=== PATIENT | female | born 1970 | race Caucasian/White ===

== ENCOUNTER 2018-05-21 05:08 | Inpatient (IN) | payer OTHER ==
[~2018-05-21] VITALS: Ht 160 cm; Wt 83.6 kg
[2018-05-21 05:10] VITALS: Ht 160 cm; Wt 83.6 kg
[2018-05-21] MEDS ORDERED: MELOXICAM7.5 M1 PO (10:09)
[2018-05-21] MEDS ORDERED: CLARITIN10 MG PO (10:09)
[2018-05-21] MEDS ORDERED: NEU300 PO (10:11)
[2018-05-21] MEDS ORDERED: CYMBALTA20 M1 (10:11)
[2018-05-21] MEDS ORDERED: PRILOSEC OTC20 M1 PO (10:12)
[2018-05-21] MEDS ORDERED: XARELTO10 M1 PO (10:12)
[2018-05-21] MEDS ORDERED: LOSARTAN POTASS50 M1 PO (10:13)
[2018-05-21] MEDS ORDERED: LIPI20 PO (10:13)
[2018-05-21] MEDS ORDERED: TRILEPTAL150 MG PO (10:13)
[2018-05-21 10:21] LABS: CALCIUM 8.7 mg/dL (8.5-10.1); CARBON DIOXIDE 29.1 mmol/L (21-32); CHLORIDE SERUM 103 mmol/L (98-107); CREATININE SERUM 0.8 mg/dL (0.6-1.0); GFR1 > 60 mL/min; GLUCOSE SERUM 161 mg/dL (74-106); POTASSIUM SERUM 3.6 mmol/L (3.5-5.1); SODIUM SERUM 138 mmol/L (136-145)
[2018-05-21 10:26] LABS: ALBUMIN 3.4 g/dL (3.4-5.0); ALKALINE PHOSPHATASE 99 U/L (46-116); ALT/SGPT 22 U/L (14-59); AST/SGOT 17 U/L (15-37); BILIRUBIN TOTAL 0.19 mg/dL (0.20-1.00); TOTAL PROTEIN, SERUM 7.8 g/dL (6.4-8.2)
[2018-05-21 12:35] VITALS: BP 152/92
[2018-05-21 12:44] LABS: PHOSPHOROUS 2.6 mg/dL (2.5-4.9)
[2018-05-21 12:48] LABS: CHOLESTEROL/HDL RATIO 2.5
[2018-05-21 12:52] LABS: FREE T4 0.79 ng/dL (0.76-1.46); FREE THYROXINE INDEX 1.7 ug/dL (1.4-4.5); T4(THYROXINE) 5.9 ug/dL (4.7-13.3)
[2018-05-21 12:57] LABS: T3 TOTAL 1.26 ng/mL
[2018-05-21 14:04] LABS: BASOPHIL % 0.6 % (0-2); PLATELET COUNT 428 x10^3mcL (130-400); RED CELL DISTRIBUTION WIDTH 14.7 % (11.5-14.5)
[2018-05-21 15:11] VITALS: BP 138/79
[2018-05-21 15:49] LABS: microscopic required? NO
[2018-05-21 15:55] LABS: urine erythrocyte NEGATIVE (NEGATIVE)
[2018-05-21 16:27] LABS: AMPHETAMINE QUAL UR NONE DETECTED (See below)
[2018-05-21 17:22] VITALS: BP 138/79
[2018-05-21 17:34] VITALS: BP 138/72
[2018-05-21 21:44] VITALS: BP 132/73
[2018-05-22 04:55] VITALS: BP 127/82
[2018-05-22 06:46] LABS: BASOPHIL % 0.3 % (0-2); PLATELET COUNT 382 x10^3mcL (130-400)
[2018-05-22 06:52] LABS: RED CELL DISTRIBUTION WIDTH 14.8 % (11.5-14.5)
[2018-05-22 07:13] LABS: CALCIUM 8.2 mg/dL (8.5-10.1); CHLORIDE SERUM 107 mmol/L (98-107); CREATININE SERUM 0.6 mg/dL (0.6-1.0); GFR1 > 60 mL/min; GLUCOSE SERUM 90 mg/dL (74-106); MAGNESIUM 2.2 mg/dL (1.8-2.4); PHOSPHOROUS 3.7 mg/dL (2.5-4.9); POTASSIUM SERUM 3.6 mmol/L (3.5-5.1); SODIUM SERUM 138 mmol/L (136-145)
[2018-05-22 09:03] VITALS: BP 131/78
[2018-05-22] MEDS ORDERED: BUDESONIDE0.5 MG/2 M IH (11:52)
[2018-05-22] MEDS ORDERED: IPRATROPIUM BROM3 M2 HHN (11:53)
[2018-05-22] MEDS ORDERED: LEVOFLOXACIN500 M1 PO (11:55)
[2018-05-22 12:16] VITALS: BP 132/82
[2018-05-22] MEDS ORDERED: VENTOLIN H0.09 MG/A1 INH (12:42)
[2018-05-22 13:10] VITALS: BP 132/82
== END 2018-05-22 13:40 | disposition home or self-care (01) | DRG 145 ==
LOC: ED 05:08 → MU 11:03 → DU 11:03
PROVIDERS: Emergency Medicine; Internal Medicine
DX: J20.8 Acute bronchitis due to other specified organisms (principal); E87.2 Acidosis; E78.5 Hyperlipidemia, unspecified; R73.03 Prediabetes; M79.7 Fibromyalgia; F31.9 Bipolar disorder, unspecified; I10 Essential (primary) hypertension; Z68.32 Body mass index [BMI] 32.0-32.9, adult; Z87.891 Personal history of nicotine dependence; Z79.01 Long term (current) use of anticoagulants; Z86.718 Personal history of other venous thrombosis and embolism; J45.909 Unspecified asthma, uncomplicated; Z90.49 Acquired absence of other specified parts of digestive tract; R73.9 Hyperglycemia, unspecified; Z82.49 Family history of ischemic heart disease and other diseases of the circulatory system; R07.89 Other chest pain; R19.7 Diarrhea, unspecified
CPT/HCPCS: 83880; 84439; 87804; 94150; J7030; J7512; J7613; J7620; J7626; J7644; Q0092; Q9967

== ENCOUNTER 2018-05-28 22:03 | Emergency (ER) | payer OTHER ==
[~2018-05-28] VITALS: Ht 160 cm; Wt 82.7 kg
[~2018-05-28 22:03] MED LIST: BUDESONIDE0.5 MG/2 M IH; CLARITIN10 MG PO; CYMBALTA20 M1; IPRATROPIUM BROM3 M2 HHN; LEVOFLOXACIN500 M1 PO; LIPI20 PO; LOSARTAN POTASS50 M1 PO; MELOXICAM7.5 M1 PO; NEU300 PO; PRILOSEC OTC20 M1 PO; TRILEPTAL150 MG PO; VENTOLIN H0.09 MG/A1 INH; XARELTO10 M1 PO
[2018-05-28 22:11] VITALS: Ht 160 cm; Wt 82.7 kg
[2018-05-28 22:56] LABS: BASOPHIL % 0.5 % (0-2); PLATELET COUNT 479 x10^3mcL (130-400); RED CELL DISTRIBUTION WIDTH 15.1 % (11.5-14.5)
[2018-05-28 23:02] LABS: CALCIUM 8.8 mg/dL (8.5-10.1); CARBON DIOXIDE 24.5 mmol/L (21-32); CHLORIDE SERUM 106 mmol/L (98-107); CREATININE SERUM 0.8 mg/dL (0.6-1.0); GFR1 > 60 mL/min; GLUCOSE SERUM 107 mg/dL (74-106); POTASSIUM SERUM 3.9 mmol/L (3.5-5.1); SODIUM SERUM 142 mmol/L (136-145)
[2018-05-28 23:15] LABS: ALBUMIN 3.6 g/dL (3.4-5.0); ALKALINE PHOSPHATASE 124 U/L (46-116); ALT/SGPT 76 U/L (14-59); AST/SGOT 22 U/L (15-37); BILIRUBIN TOTAL 0.1 mg/dL (0.20-1.00); FREE T4 0.79 ng/dL (0.76-1.46)
[2018-05-29 01:14] LABS: microscopic required? NO
[2018-05-29 01:29] LABS: UA SPECIFIC GRAVITY >=1.030 (1.005-1.035); urine erythrocyte NEGATIVE (NEGATIVE)
[2018-05-29 01:35] LABS: AMPHETAMINE QUAL UR NONE DETECTED (See below)
[2018-05-29 06:59] VITALS: BP 123/80
== END 2018-05-29 07:30 | disposition home or self-care (01) ==
LOC: ED 22:03
PROVIDERS: Emergency Medicine
DX: F31.9 Bipolar disorder, unspecified (principal); F10.129 Alcohol abuse with intoxication, unspecified; R45.851 Suicidal ideations; I10 Essential (primary) hypertension; Z86.718 Personal history of other venous thrombosis and embolism
CPT/HCPCS: 36415; 84439; G0480

== ENCOUNTER 2018-09-20 14:29 | Inpatient (IN) | payer OTHER ==
[~2018-09-20] VITALS: Ht 160 cm; Wt 86.2 kg
[2018-09-20 14:49] VITALS: Ht 160 cm; Wt 86.2 kg
[2018-09-20 16:25] LABS: BASOPHIL % 0.3 % (0-2); PLATELET COUNT 466 x10^3mcL (130-400); RED CELL DISTRIBUTION WIDTH 14.6 % (11.5-14.5)
[2018-09-20 16:39] LABS: CALCIUM 9.1 mg/dL (8.5-10.1); CARBON DIOXIDE 27.2 mmol/L (21-32); CHLORIDE SERUM 103 mmol/L (98-107); CREATININE SERUM 0.8 mg/dL (0.6-1.0); GFR1 > 60 mL/min; GLUCOSE SERUM 107 mg/dL (74-106); POTASSIUM SERUM 3.7 mmol/L (3.5-5.1); SODIUM SERUM 140 mmol/L (136-145)
[2018-09-20 16:45] LABS: ALBUMIN 3.7 g/dL (3.4-5.0); ALKALINE PHOSPHATASE 92 U/L (46-116); ALT/SGPT 24 U/L (14-59); AST/SGOT 20 U/L (15-37)
[2018-09-20 17:08] LABS: BILIRUBIN TOTAL 0.14 mg/dL (0.20-1.00)
[2018-09-20] MEDS ORDERED: AMBIEN5 MG PO (17:49)
[2018-09-20] MEDS ORDERED: CLARITIN10 MG PO (17:49)
[2018-09-20] MEDS ORDERED: DULOXETINE60 MG (17:50)
[2018-09-20] MEDS ORDERED: TRILEPTAL600 MG PO (17:51)
[2018-09-20] MEDS ORDERED: ASPIR 8181 MG PO (17:51)
[2018-09-20] MEDS ORDERED: MELOXICAM7.5 M1 PO (17:51)
[2018-09-20] MEDS ORDERED: LOSARTAN POTASS50 M1 PO (17:52)
[2018-09-20] MEDS ORDERED: GOOD SENSE OMEP20 MG PO (17:52)
[2018-09-20] MEDS ORDERED: XARELTO10 M1 (17:52)
[2018-09-20] MEDS ORDERED: NEU300 (17:53)
[2018-09-20 19:04] LABS: CHOLESTEROL/HDL RATIO 2.4; MAGNESIUM 2.3 mg/dL (1.8-2.4); PHOSPHOROUS 3.7 mg/dL (2.5-4.9)
[2018-09-20 19:28] VITALS: BP 140/95
[2018-09-20 20:54] LABS: UA SPECIFIC GRAVITY 1.025 (1.005-1.035); microscopic required? YES; urine erythrocyte TRACE (NEGATIVE)
[2018-09-20 21:02] LABS: AMPHETAMINE QUAL UR NONE DETECTED (See below)
[2018-09-20] MEDS ORDERED: NITROGLYCERIN0.4 MG (21:53)
[2018-09-21 05:59] VITALS: BP 107/63
[2018-09-21 07:04] LABS: BASOPHIL % 0.7 % (0-2); RED CELL DISTRIBUTION WIDTH 14.5 % (11.5-14.5)
[2018-09-21 07:12] LABS: CALCIUM 8.8 mg/dL (8.5-10.1); CARBON DIOXIDE 27.1 mmol/L (21-32); CHLORIDE SERUM 109 mmol/L (98-107); CREATININE SERUM 0.7 mg/dL (0.6-1.0); GFR1 > 60 mL/min; GLUCOSE SERUM 89 mg/dL (74-106); MAGNESIUM 2.1 mg/dL (1.8-2.4); PHOSPHOROUS 4.4 mg/dL (2.5-4.9); POTASSIUM SERUM 3.9 mmol/L (3.5-5.1); SODIUM SERUM 146 mmol/L (136-145)
[2018-09-21 07:37] LABS: PLATELET COUNT 442 x10^3mcL (130-400)
[2018-09-21 09:06] VITALS: BP 124/68
[2018-09-21 16:04] VITALS: BP 135/87
[2018-09-21 20:20] VITALS: BP 123/80
[2018-09-22 05:01] VITALS: BP 113/62
[2018-09-22 06:32] LABS: BASOPHIL % 0.9 % (0-2)
[2018-09-22 06:54] LABS: PLATELET COUNT 469 x10^3mcL (130-400); RED CELL DISTRIBUTION WIDTH 14.9 % (11.5-14.5)
[2018-09-22 07:01] LABS: CALCIUM 9.3 mg/dL (8.5-10.1); CARBON DIOXIDE 24.9 mmol/L (21-32); CHLORIDE SERUM 107 mmol/L (98-107); CREATININE SERUM 0.8 mg/dL (0.6-1.0); GFR1 > 60 mL/min; GLUCOSE SERUM 87 mg/dL (74-106); MAGNESIUM 2.4 mg/dL (1.8-2.4); PHOSPHOROUS 4.8 mg/dL (2.5-4.9); POTASSIUM SERUM 3.9 mmol/L (3.5-5.1); SODIUM SERUM 144 mmol/L (136-145)
[2018-09-22 14:02] VITALS: BP 128/82
[2018-09-22 16:47] VITALS: BP 166/88
[2018-09-22 20:34] VITALS: BP 110/67
[2018-09-23 05:24] VITALS: BP 114/56
[2018-09-23 10:22] VITALS: BP 126/74
[2018-09-23 10:45] LABS: CALCIUM 9.1 mg/dL (8.5-10.1); CARBON DIOXIDE 27.1 mmol/L (21-32); CHLORIDE SERUM 108 mmol/L (98-107); CREATININE SERUM 0.8 mg/dL (0.6-1.0); GFR1 > 60 mL/min; GLUCOSE SERUM 167 mg/dL (74-106); MAGNESIUM 1.8 mg/dL (1.8-2.4); PHOSPHOROUS 3.6 mg/dL (2.5-4.9); SODIUM SERUM 144 mmol/L (136-145)
[2018-09-23] MEDS ORDERED: MIRALAX17 GM/Dose PO (11:51)
[2018-09-23] MEDS ORDERED: NEU300 PO (12:44)
[2018-09-23 12:45] VITALS: BP 126/74
[2018-09-23 13:00] LABS: BASOPHIL % 0.4 % (0-2)
[2018-09-23 13:20] LABS: PLATELET COUNT 464 x10^3mcL (130-400); RED CELL DISTRIBUTION WIDTH 14.8 % (11.5-14.5)
== END 2018-09-23 13:44 | disposition home or self-care (01) | DRG 253 ==
LOC: ED 14:29 → DU 18:09
PROVIDERS: Emergency Medicine; Internal Medicine Gastroenterology; ADMIT Internal Medicine
PROC: 0DJD8ZZ Inspection of Lower Intestinal Tract, Via Natural or Artificial Opening Endoscopic (ICD-10-PCS; principal; 2018-09-22 13:30)
DX: K62.5 Hemorrhage of anus and rectum (principal); D47.3 Essential (hemorrhagic) thrombocythemia; E78.5 Hyperlipidemia, unspecified; F31.9 Bipolar disorder, unspecified; I16.1 Hypertensive emergency; K64.8 Other hemorrhoids; I10 Essential (primary) hypertension; K21.9 Gastro-esophageal reflux disease without esophagitis; Z90.81 Acquired absence of spleen; Z68.33 Body mass index [BMI] 33.0-33.9, adult; Z86.711 Personal history of pulmonary embolism; Z79.01 Long term (current) use of anticoagulants; Z86.718 Personal history of other venous thrombosis and embolism; Z87.01 Personal history of pneumonia (recurrent); Z90.49 Acquired absence of other specified parts of digestive tract; Z82.49 Family history of ischemic heart disease and other diseases of the circulatory system; Z80.0 Family history of malignant neoplasm of digestive organs; Z79.899 Other long term (current) drug therapy
CPT/HCPCS: 45378; 87046; 87046-59; C9113; J0696; J1200; J1610; J2250; J2310; J3010; J3490; J7030; Q0092